=== PATIENT | male | born 1955 | race Caucasian/White ===

== ENCOUNTER → 2016-09-19 | Outpatient (CLI) | payer BC | LOC: RAD 07:59 | PROVIDERS: ATTEND Family Medicine | DX: R10.12 Left upper quadrant pain (principal) | CPT/HCPCS: 74178; Q9967 ==

== ENCOUNTER → 2016-12-10 | Outpatient (CLI) | payer BC ==
[~2016-12-10] MED LIST: AMOX875T2 PO; FLUT16SP NS
[2016-12-10 12:21] VITALS: BP 119/79
--- NOTE | 2016-12-10 12:21 | Urgent Care T Sheet Gen (E) ---
Intake General Temperature (Fahrenheit): 98.0 Pulse: 70 Blood Pressure Systolic: 119 Blood Pressure Diastolic: 79 Respirations: 18 SPO2: 98 Chief Complaint: UC Ear/Nose/Throat Complaint Description of Symptoms Complains of cough and yellow thick phlegm, nose stuffed up and feels congested. x several days. no SOB, has asthma but uses inhalers. Also reports that 4-5 weeks ago was playing pickle ball and ran into net- testes were bruised and since hes been coughing now with this has noticed a bump that comes and goes to his right groin, its not there today. no pain no dysuria no other complaints, just mentioning it Source: Patient History of Present Illness Onset & Duration: Days Timing: Still present Severity: Mild Recent Trauma: Yes (4-5 weeks ago ran into a net and testes were bruised, no trouble now with urinating no blood) Allergies: Coded Allergies: Doxycycline (Verified Allergy, 12/10/16) Respiratory Constitutional Symptoms: No syptoms reported EENTM: Nose Congestion Throat pain Other (sinus pressure, stuffy nose and yellow drainage) Respiratory: Cough Cardiovascular: No symptoms reported Gastrointestinal/Abdominal: No symptoms reported Genitourinary: Other (no symptoms today but reports bump right groin at times , not today tho and no pain there) Musculoskeletal: No symptoms reported Skin: No symptoms reported All Other Systems Reviewed Remaining Systems: All other systems reviewed with negative findings Past Xuxrgpe-Eepccr-Aeyque Hx Patient's Social History Alcohol Use: Denies Use Recreational Drug Use: Denies Use Surgeries/Hospitalizations Hospitalization/Surgery Hx: asthma Physical Exam Physical Exam General Appearance: WD/WN No apparent distress Eyes, Ears, Nose, Throat Ex: PERRL/EOMI TM abnormal (R) (dull fluid) TM abnormal (L) (dull fluid) Pharyngeal erythema (moderate) Neck Exam: Full range of motion Supple Normal inspection Respiratory Exam: Lungs clear Normal breath sounds No respiratory distress No accessory muscles usedNo Accessory muscle use, No Wheezes Cardiovascular Exam: Regular rate, rhythm No murmur Back Exam: Normal Inspection No CVA tenderness Skin Exam: Normal color Warm/dry/intact No rashes Other (noted scratches upper back no drainage no necrosis ) Neurologic/Psychiatric Exam: Oriented times 4 CN's II-X nml Comment Male exam not done today due to "no bump there today" but sounds like a possible hernia has developed Departure Urgent Care Impression Chief Complaint: Ear/Nose/Throat Complaint Impression: Primary Impression: Sinusitis Qualified Code: J01.10 - Acute frontal sinusitis, unspecified Departure Disposition: HOME OR SELF-CARE Condition: Stable Referrals: Doc Childs (PCP) Additional Instructions: Long talk with him rest hydrate Tylenol for pain or fever, change tooth brush in 48 hours, Continue inhalers as at home f/u PCP as needed as far as right groin- monitor it, if bump returns and is painful go to the ED He knows it is likely a hernia and needs monitored, probably from traumatic injury to testes 4-5 weeks ago. (pickle ball injury- ran into net) He will notify his doctor, offered him to se Dr Cleary - he will observe this. He agrees to plan of care. Scripts Fluticasone Propionate 16 Gm Diagonal.susp16 Gm NS DAILY #1 BTL 2 sprays each nare daily x 7 days Prov:AARON LOUIE APRN () 12/10/16 Amoxicillin 875 Mg [id number] Mg PO BID #20 TAB Ref 0 Prov:AARON LOUIE APRN () 12/10/16 End of report . AARON LOUIE APRN () Dec 10, 2016 12:21
== END ==
LOC: MHUC 11:50
PROVIDERS: ATTEND Nurse Practitioner
DX: J01.10 Acute frontal sinusitis, unspecified (principal)
CPT/HCPCS: 99213

== ENCOUNTER 2017-01-04 15:56 | Outpatient (RCR) | payer BC, OTHER ==
[~2017-01-04] VITALS: Ht 167.6 cm; Wt 73.9 kg
--- NOTE | 2017-01-04 16:29 | NUR ---
PT COMPLETES HIS QUESTIONS WITH PHARMACIST, GILBERTO. STATES HE WILL GO AHEAD WITH TREATMENT TODAY. CL
--- NOTE | 2017-01-04 16:43 | NUR ---
PHARMACY INFORMED WE WILL NEED THE MEDICATIONS. CL
[2017-01-04] MEDS ORDERED: [UNRECOGNIZED DRUG - OTHER] IM ONE (17:10)
--- NOTE | 2017-01-04 17:20 | NUR ---
IMMUNOGLOBULIN RECEIVED FROM PHARMACY. PT CONTINUES TO HAVE QUESTIONS. CL
[2017-01-04] MEDS: RABIES VACCINE IM SCH (17:28)
[2017-01-07] MEDS: RABIES VACCINE IM SCH (07:34)
[2017-01-11] MEDS: RABIES VACCINE IM SCH (15:17)
[2017-01-11 15:20] VITALS: BP 107/64
== END 2017-01-11 18:34 | disposition home or self-care (01) ==
LOC: EUOP 01-07 07:20
PROVIDERS: ATTEND Physician Assistant
DX: Z20.3 Contact with and (suspected) exposure to rabies (principal)
CPT/HCPCS: 90376; 90471; 90675; 96372

== ENCOUNTER → 2017-01-04 | Outpatient (CLI) | payer BC, OTHER ==
[2017-01-04 16:52] VITALS: BP 110/75
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
== END ==
LOC: MHUC 14:20
PROVIDERS: ATTEND Physician Assistant
DX: Z20.3 Contact with and (suspected) exposure to rabies (principal)
CPT/HCPCS: 99213